=== PATIENT | male | born 1955 | race Caucasian/White ===

== ENCOUNTER → 2016-05-26 | Outpatient (CLI) | payer MEDICARE ==
[~2016-05-26] MED LIST: ALDACTONE50 MG PO; AMBIEN 10MG10 MG PO; AMOXICILLIN 50500 MG PO; BETAPACE 80MG80 MG PO; BUMETANIDE1 MG PO; BUMEX1 MG PO; BUMEX2 MG PO; CALCIUM CARBONATE; CALCIUM1 CAP PO; CAPOTEN50 MG PO; CEPHALEXIN500 M1 PO; CLEOCIN HCL300 MG PO; COUMADIN 5MG5 MG/TAB PO; COUMADIN10 MG PO; COUMADIN4 MG PO; COUMADIN6 MG PO; COZAAR 50MG50 MG/TAB PO; FE-TABS325 MG PO; FISH OIL CONC1000 MG PO; FISH OIL1000 MG PO; FLAGYL PO; GABAPENTIN300 MG PO; HYDROCODONE BIT1 TA3 PO; KLOR-CON 1010 MEQ PO; LASIX 40MG TABL40 MG PO; LORTAB 7.5/5001 TAB; LYRICA; MORPHINE 1515 MG/TAB PO; MORPHINE10 MG PO; NORCO 325 MG-51 TAB; NORCO 325 MG-51 TAB PO; OMNICEF 300MG300 MG PO; OS-CAL 500 + D1 TAB PO; OXYCONTIN10 MG PO; PACERONE200 MG PO; POLYETHYLE17 GM/DOSE PO; PRILOSEC 20MG20 MG PO; PRINCIPEN250 MG PO; SEPTRA DS 8001 TAB PO; VITAMIN B COMPL1 TA1 PO; VITAMIN C BUFF500 MG PO; VITAMIN C500 MG PO; VITAMIN COMPLEX1 TA1 PO; WARFARIN SODIU2.5 MG PO; WARFARIN SODIUM1 MG PO; ZOLPIDEM10 MG PO; hyomax PO
== END ==
LOC: WCC 13:30
DX: I87.8 Other specified disorders of veins (principal)
CPT/HCPCS: 17717; A6212; G0463

== ENCOUNTER → 2016-06-01 | Outpatient (CLI) | payer MEDICARE | LOC: WCC 11:00 | DX: I87.8 Other specified disorders of veins (principal); L97.529 Non-pressure chronic ulcer of other part of left foot with unspecified severity | CPT/HCPCS: 17717; 27517; A6207; A6212; G0463 ==

== ENCOUNTER → 2016-06-08 | Outpatient (CLI) | payer MEDICARE | LOC: WCC 09:02 | DX: I87.8 Other specified disorders of veins (principal); L97.529 Non-pressure chronic ulcer of other part of left foot with unspecified severity | CPT/HCPCS: 17717; 27510; A6197; A6212; G0463 ==

== ENCOUNTER → 2016-06-15 | Outpatient (CLI) | payer MEDICARE | LOC: WCC 09:00 | DX: I87.8 Other specified disorders of veins (principal); I87.2 Venous insufficiency (chronic) (peripheral); L89.522 Pressure ulcer of left ankle, stage 2 | CPT/HCPCS: 17717; 27510; A6197; A6212; G0463 ==

== ENCOUNTER → 2016-06-22 | Outpatient (CLI) | payer MEDICARE | LOC: WCC 08:46 | DX: I87.8 Other specified disorders of veins (principal); L89.819 Pressure ulcer of head, unspecified stage | CPT/HCPCS: 17717; A6212; G0463 ==

== ENCOUNTER → 2016-07-01 | Outpatient (CLI) | payer MEDICARE | LOC: WCC 08:32 | DX: I87.8 Other specified disorders of veins (principal); L97.529 Non-pressure chronic ulcer of other part of left foot with unspecified severity | CPT/HCPCS: 17717; 27510; A6197; A6212; G0463 ==

== ENCOUNTER → 2016-07-08 | Outpatient (CLI) | payer MEDICARE | LOC: WCC 09:13 | DX: L89.529 Pressure ulcer of left ankle, unspecified stage (principal) | CPT/HCPCS: 17717; 27510; A6197; A6212; G0463 ==

== ENCOUNTER → 2016-07-15 | Outpatient (CLI) | payer MEDICARE | LOC: WCC 09:03 | DX: I87.8 Other specified disorders of veins (principal); L97.529 Non-pressure chronic ulcer of other part of left foot with unspecified severity | CPT/HCPCS: 17717; A6212; G0463 ==

== ENCOUNTER → 2016-07-22 | Outpatient (CLI) | payer MEDICARE | LOC: WCC 08:15 | DX: L89.899 Pressure ulcer of other site, unspecified stage (principal) | CPT/HCPCS: 17717; 27510; A6197; A6212 ==

== ENCOUNTER → 2016-07-29 | Outpatient (CLI) | payer MEDICARE | LOC: WCC 08:33 | DX: L89.899 Pressure ulcer of other site, unspecified stage (principal) | CPT/HCPCS: 17717; A6212; G0463 ==

== ENCOUNTER → 2016-07-31 | Outpatient (CLI) | payer MEDICARE | LOC: WCC 08:20 | DX: I87.8 Other specified disorders of veins (principal); L97.529 Non-pressure chronic ulcer of other part of left foot with unspecified severity | CPT/HCPCS: G0463 ==

== ENCOUNTER → 2016-08-03 | Outpatient (CLI) | payer MEDICARE | LOC: WCC 09:36 | DX: I87.8 Other specified disorders of veins (principal); L97.529 Non-pressure chronic ulcer of other part of left foot with unspecified severity | CPT/HCPCS: 17717; 27510; A6197; A6212; G0463 ==

== ENCOUNTER → 2016-08-10 | Outpatient (CLI) | payer MEDICARE | LOC: WCC 12:14 | DX: I87.2 Venous insufficiency (chronic) (peripheral) (principal); I87.8 Other specified disorders of veins; L97.529 Non-pressure chronic ulcer of other part of left foot with unspecified severity | CPT/HCPCS: 17717; A6212 ==

== ENCOUNTER → 2016-08-17 | Outpatient (CLI) | payer MEDICARE | LOC: WCC 08:47 | DX: I87.2 Venous insufficiency (chronic) (peripheral) (principal); L89.522 Pressure ulcer of left ankle, stage 2 | CPT/HCPCS: 17717; 27510; A6197; A6212; G0463 ==

== ENCOUNTER → 2016-08-24 | Outpatient (CLI) | payer MEDICARE | LOC: WCC 09:11 | DX: I87.2 Venous insufficiency (chronic) (peripheral) (principal); L97.529 Non-pressure chronic ulcer of other part of left foot with unspecified severity | CPT/HCPCS: 17719; 27510; A6197; A6212 ==

== ENCOUNTER → 2016-08-31 | Outpatient (CLI) | payer MEDICARE | LOC: WCC 08:56 | DX: I87.2 Venous insufficiency (chronic) (peripheral) (principal); L97.529 Non-pressure chronic ulcer of other part of left foot with unspecified severity | CPT/HCPCS: 17717; 27510; A6197; A6212; G0463 ==

== ENCOUNTER → 2016-09-07 | Outpatient (CLI) | payer MEDICARE | LOC: WCC 08:34 | DX: I87.2 Venous insufficiency (chronic) (peripheral) (principal); L97.529 Non-pressure chronic ulcer of other part of left foot with unspecified severity; E66.01 Morbid (severe) obesity due to excess calories | CPT/HCPCS: 17717; A6212; G0463 ==

== ENCOUNTER → 2016-09-14 | Outpatient (CLI) | payer MEDICARE | LOC: WCC 09:59 | DX: I87.2 Venous insufficiency (chronic) (peripheral) (principal); F17.290 Nicotine dependence, other tobacco product, uncomplicated | CPT/HCPCS: 17717; A6212; G0463 ==

== ENCOUNTER → 2016-09-28 | Outpatient (CLI) | payer MEDICARE | LOC: WCC 08:38 | DX: I87.2 Venous insufficiency (chronic) (peripheral) (principal); S90.822A Blister (nonthermal), left foot, initial encounter | CPT/HCPCS: 17717; A6212; G0463 ==

== ENCOUNTER → 2016-10-12 | Outpatient (CLI) | payer MEDICARE | LOC: WCC 08:36 | DX: I87.2 Venous insufficiency (chronic) (peripheral) (principal); L89.529 Pressure ulcer of left ankle, unspecified stage | CPT/HCPCS: 17717; A6212; G0463 ==

== ENCOUNTER → 2016-10-30 | Outpatient (CLI) | payer MEDICARE | LOC: WCC 08:56 | DX: Z01.89 Encounter for other specified special examinations (principal) ==

== ENCOUNTER → 2016-11-13 | Outpatient (CLI) | payer MEDICARE | LOC: WCC 08:36 | DX: I87.312 Chronic venous hypertension (idiopathic) with ulcer of left lower extremity (principal) | CPT/HCPCS: 17717; A6212; G0463 ==

== ENCOUNTER → 2016-11-27 | Outpatient (CLI) | payer MEDICARE | LOC: WCC 08:07 | DX: Z01.89 Encounter for other specified special examinations (principal) ==

== ENCOUNTER → 2016-12-11 | Outpatient (CLI) | payer MEDICARE | LOC: WCC 08:22 | DX: Z01.89 Encounter for other specified special examinations (principal) ==

== ENCOUNTER → 2016-12-25 | Outpatient (CLI) | payer MEDICARE | LOC: WCC 09:41 | DX: Z01.89 Encounter for other specified special examinations (principal) ==

== ENCOUNTER → 2017-01-06 | Outpatient (CLI) | payer MEDICARE | LOC: WCC 09:03 | DX: L89.899 Pressure ulcer of other site, unspecified stage (principal); H54.41 Blindness, right eye, normal vision left eye | CPT/HCPCS: 17717; A6212; G0463 ==

== ENCOUNTER → 2017-02-03 | Outpatient (CLI) | payer MEDICARE | LOC: WCC 08:28 | DX: L98.499 Non-pressure chronic ulcer of skin of other sites with unspecified severity (principal); I87.2 Venous insufficiency (chronic) (peripheral) | CPT/HCPCS: G0463 ==

== ENCOUNTER → 2017-03-03 | Outpatient (CLI) | payer MEDICARE | LOC: WCC 03-02 10:03 | DX: L97.829 Non-pressure chronic ulcer of other part of left lower leg with unspecified severity (principal); L97.819 Non-pressure chronic ulcer of other part of right lower leg with unspecified severity; I87.2 Venous insufficiency (chronic) (peripheral) | CPT/HCPCS: G0463 ==